=== PATIENT | female | born 1945 | race Caucasian/White ===

== ENCOUNTER 2018-10-05 05:50 | Day surgery (SDC) | payer OTHER ==
[~2018-10-05 05:50] MED LIST: AMARYL PO; LANTUS SOL100 UNIT/1; LOSARTAN POTASS50 MG PO; SYNTHROID75 MCG PO; VITAMIN D34000 UNIT PO
== END 2018-10-05 17:20 | disposition home or self-care (01) ==
LOC: CIR.AMB 05:50
DX: N81.11 Cystocele, midline (principal)